=== PATIENT | female | born 1960 | race Caucasian/White ===

== ENCOUNTER 2017-08-19 10:13 | Emergency (ER) | payer OTHER ==
[~2017-08-19] VITALS: Ht 167.6 cm; Wt 98.0 kg
[2017-08-19 10:33] VITALS: BP 167/79; PULSE 81; RESP 16; TEMP 98.4; O2SAT 96
[2017-08-19] MEDS ORDERED: NAPR500T2 PO (10:56)
[2017-08-19] MEDS ORDERED: METH750T PO (10:56)
[2017-08-19] MEDS ORDERED: TRAM50TA PO (10:56)
--- NOTE | 2017-08-19 11:16 | PD ---
HPI Chief Complaint: Back/ Neck Pain or Injury Time Seen by Provider: 10:46 Travel History International Travel<30 days: No Contact w/Intl Traveler<30days: No Traveled to known affect area: No History of Present Illness HPI This is a 56 year old female who has a history of chronic back pain with worsening pain over the past 5 days, constant, 7/10, extending from the lumbar spine to the mid thoracic area. Pt. uses tramadol and Robaxin for her pain but its not helping. Pt. saw her primary care physician for this and he prescribed her exercises which haven't helped. Pt. feels better when she lies down and uses a heating pad. It hurts more when she is standing for a while. (-) preceding traumatic injury (-) weakness/numbness PFSH Past Medical History Musculoskeletal: Yes (back pain) Tetanus Vaccination: > 5 Years Influenza Vaccination: No Past Surgical History Hysterectomy: Yes Other Surgery: Yes (right wrist) Social History Alcohol Use: No Tobacco Use: Yes ("10 cigs a day") Substance Use: No Allergies-Medications (Allergen,Severity, Reaction): Coded Allergies: No Known Allergies (Unverified , 08/19/17) Reported Meds & Prescriptions Reported Meds & Active Scripts Active Reported Methocarbamol 750 Mg Tab 750 Mg PO QID Tramadol (Tramadol HCl) 50 Mg Tab 50 Mg PO Q6H PRN Naproxen 500 Mg Tab 500 Mg PO BID Review of Systems Except as stated in HPI: all other systems reviewed are Neg Physical Exam Narrative GENERAL:Well appearing, no acute distress SKIN: Focused skin assessment warm and dry. HEAD: Atraumatic. Normocephalic. EYES: Pupils equal and round. No injection or drainage. ENT: Moist mucous membranes NECK: Trachea midline. CARDIOVASCULAR: Regular rate and rhythm. No murmur appreciated. RESPIRATORY: Clear to auscultation. Breath sounds equal bilaterally. GASTROINTESTINAL: Abdomen soft, non-tender, nondistended. MUSCULOSKELETAL: Tender to palpation along the mid thoracic spine NEUROLOGICAL: Awake and alert. No obvious cranial nerve deficits. Moving all extremities. PSYCHIATRIC: Appropriate mood and affect; insight and judgment normal. Data Data Last Documented VS Vital Signs Date Time Temp Pulse Resp B/P (MAP) Pulse Ox O2 Delivery O2 Flow Rate FiO2 08/19/17 10:33 98.4 81 16 167/79 (108) 96 Orders Orders Ketorolac Inj (Toradol Inj) (08/19/17 11:30) Spine, Thoracic-Ap/Lat/Sw(3vw) (08/19/17 ) MDM Medical Decision Making Medical Screen Exam Complete: Yes Emergency Medical Condition: Yes Interpretation(s) Afebrile, no tachycardia, hypertensive X-ray: No acute fracture Differential Diagnosis Degenerative disc disease, cauda equina syndrome, epidural abscess, cancer Narrative Course This is a 56-year-old female who presents to the emergency department with back pain that has been lab for 5 days. She's been trying tramadol and Robaxin but it's not getting better. She has a long history of chronic back pain. She has no red flags for cauda equina syndrome or epidural abscess. X-ray was reassuring. Patient will be discharged home on meloxicam and was advised to follow-up with her primary care physician for physical therapy. Diagnosis Primary Impression: Acute exacerbation of chronic low back pain Patient Instructions: General Instructions Additional Instructions: If you develop weakness of your legs, difficulty walking, numbness of your legs or your genital or rectal area, loss of your bowel or bladder, or difficulty urinating return to the emergency department immediately. Followup with your primary care physician in one week if your symptoms have not improved. Med/Other Pt SpecificInfo: Prescription(s) given Scripts Meloxicam (Meloxicam) 7.5 Mg Tab 7.5 MG PO DAILY for Arthritis Pain for 10 Days, #10 TAB 0 Refills Prov: Desiree Steward MD 08/19/17 Disposition: 01 DISCHARGE HOME Condition: Stable Desiree Steward MD Aug 19, 2017 11:16
[2017-08-19] MEDS ORDERED: KETOROLAC TROMETHAMINE 60 MG/2 ML (IM) VIAL IM ONE (11:30)
--- NOTE | 2017-08-19 11:55 | RADRPT ---
EXAM DATE/TIME: 08/19/2017 11:43 [facility] COMPARISON: No previous studies available for comparison. INDICATIONS : Mid back pain for 5 days. No injury. MEDICAL HISTORY : None. SURGICAL HISTORY : None. ENCOUNTER: Initial ACUITY: 4 - 6 days PAIN SCORE: 8/10 LOCATION: Bilateral Thoracic. FINDINGS: There is normal alignment of the thoracic vertebral bodies. Vertebral body height is maintained. No evidence of fracture or subluxation. Pedicles are intact at all levels. The paravertebral reflecti ons are not thickened. There are some mild primary degenerative changes of the thoracic spine. CONCLUSION: 1. No acute fracture or spondylolisthesis. 2. Mild degenerative type changes. Michael Norman MD on August 19, 2017 at 11:53 Board Certified Radiologist. This report was verified electronically.
[2017-08-19] MEDS ORDERED: MELO7.5T27 PO (12:03)
[2017-08-19 12:18] VITALS: BP 123/58
== END 2017-08-19 12:19 | disposition home or self-care (01) ==
LOC: PHED 10:13
DX: M54.5 Low back pain (principal); M54.6 Pain in thoracic spine; G89.29 Other chronic pain; F17.210 Nicotine dependence, cigarettes, uncomplicated
CPT/HCPCS: 72072; 96372; 99284; J1885